=== PATIENT | female | born 1935 | race Asian ===

== ENCOUNTER → 2016-05-30 | Outpatient (CLI) | payer OTHER ==
[~2016-05-30] MED LIST: ALBUTEROL SULFATE; ATEN25TA PO; BACITRACIN 50,000 UNIT ONE; CARV6.252 PO; DOXY100T PO; FLUT16SP NAS; FURO20TA3 PO; HEPARIN 1,000 UNITS/ML, 10ML ONE; LEVO88TA2 PO; LOVA20TA2 PO; METH4TAB PO; PROTAMINE SULFATE 10 MG/ML, 5ML ONE; THROMBIN 20,000 UNIT VIAL TP ONE
== END | disposition home or self-care (01) ==
LOC: CFH 09:08
PROVIDERS: ATTEND Internal Medicine Cardiovascular Disease
DX: I08.3 Combined rheumatic disorders of mitral, aortic and tricuspid valves (principal)
CPT/HCPCS: 93306

== ENCOUNTER → 2016-07-03 | Outpatient (CLI) | payer OTHER ==
[~2016-07-03] MED LIST changes: -BACITRACIN 50,000 UNIT ONE; -HEPARIN 1,000 UNITS/ML, 10ML ONE; -PROTAMINE SULFATE 10 MG/ML, 5ML ONE; +REGADENOSON 0.4 MG/5 ML SYRINGE ONE; -THROMBIN 20,000 UNIT VIAL TP ONE
== END | disposition home or self-care (01) ==
LOC: CFH 08:37
PROVIDERS: ATTEND Internal Medicine Cardiovascular Disease
DX: R07.89 Other chest pain (principal); R06.02 Shortness of breath
CPT/HCPCS: 78452; 93017; A9502; J2785

== ENCOUNTER 2018-01-29 20:23 | Emergency (ER) | payer OTHER ==
[~2018-01-29] VITALS: Ht 142.2 cm; Wt 60.2 kg
[~2018-01-29 20:23] MED LIST changes: -REGADENOSON 0.4 MG/5 ML SYRINGE ONE
[2018-01-29 21:30] VITALS: BP 166/72
== END 2018-01-29 21:38 | disposition home or self-care (01) ==
LOC: ED 21:32
DX: R07.89 Other chest pain (principal); I10 Essential (primary) hypertension; E03.9 Hypothyroidism, unspecified; J44.9 Chronic obstructive pulmonary disease, unspecified
CPT/HCPCS: 36415; 71045; 84484; 93005; 99284